=== PATIENT | female | born 1965 | race Caucasian/White ===

== ENCOUNTER 2022-02-16 07:02 | Observation (INO) | payer OTHER ==
[2022-02-10 14:23] LABS: BASOPHILS # (AUTO) 0.1 X10'3 (0-0.2); BASOPHILS % (AUTO) 0.9 % (0-1); EOSINOPHILS # (AUTO) 0.2 X10'3 (0-0.9); EOSINOPHILS % (AUTO) 2.8 % (0-6); LYMPHOCYTES # (AUTO) 2.1 X10'3 (1.1-4.8); LYMPHOCYTES % (AUTO) 26.3 % (21-51); MEAN CORPUSCULAR HEMOGLOBIN 28.2 PG (27.0-31.0); MEAN CORPUSCULAR HGB CONC 32.7 g/dL (33.0-36.5); MEAN PLATELET VOLUME 10.1 FL (7.4-10.4); MONOCYTES # (AUTO) 0.7 X10'3 (0-0.9); MONOCYTES % (AUTO) 8.4 % (2-12); NEUTROPHILS # (AUTO) 4.8 X10'3 (1.8-7.7); NEUTROPHILS % (AUTO) 61.6 % (42-75); PRE OP HEMATOCRIT 39.6 % (35.0-45.0); PRE OP HEMOGLOBIN 12.9 g/dL (12.0-16.0); PRE OP PLATELET COUNT 339 X10'3 (140-440); RED CELL DISTRIBUTION WIDTH 14.4 % (11.5-14.5)
[2022-02-10 14:37] LABS: ALBUMIN 3.1 G/DL (3.4-5.0); ALBUMIN/GLOBULIN RATIO 0.6 (1.1-1.5); ALKALINE PHOSPHATASE 133 IU/L (46-116); BLOOD UREA NITROGEN 14 MG/DL (7-18); BUN/CREATININE RATIO 16.3 (6.6-38.0); CALCIUM 9.2 MG/DL (8.5-10.1); CHLORIDE 102 MMOL/L (99-107); CREATININE 0.86 MG/DL (0.40-0.90); PRE OP ALT 28 U/L (30-65); PRE OP ANION GAP 5 (8-16); PRE OP AST 21 U/L (10-37); PRE OP BILIRUB, TOTAL 0.3 MG/DL (0.0-1.0); PRE OP GLUCOSE 93 MG/DL (70-104); PRE OP POTASSIUM 3.9 MMOL/L (3.4-5.1); PRE OP SODIUM 140 MMOL/L (135-145); TOTAL CARBON DIOXIDE 32.7 MMOL/L (24-32); TOTAL PROTEIN 7.9 G/DL (6.4-8.2); eGFR 68 ML/MIN
[~2022-02-16] VITALS: Ht 162.6 cm; Wt 137.3 kg
[2022-02-16] VITALS (45 sets, daily range): BP systolic 113–155; BP diastolic 46–97
[~2022-02-16 07:02] MED LIST: ALBU17AE26 INH; ALPR1TAB7 PO; ASCO100T12 PO; BUPIVACAINE liposomal/PF 13.3 MG/ML vial IM ONE; BUPIVAcaine/PF 2.5 mg/ml (0.25%) 30ml vial ONE; BUPR300T86 PO; CHOL500049 PO; DOCUMENT DATE & TIME OF BETA-BLOCKER PO ONE; EREN70AU2 SQ; ESCI20TA39 PO; GABA300T25 PO; HYDR12.55 PO; LIDOcaine 1% 30ml preserv. free vial ONE; LOSA100T57 PO; METO-395 PO; MULT1CAP66 PO; SEMA1PEN3 SQ; ceFAZolin inj. 3,000 MG in normal saline 100ml IV soln 100 ML IV ONE; famotidine 20mg tablet PO ONE
[2022-02-16] MEDS: ringers solution, lacted 1,000 ML IV SCH ×3 (08:12→21:24)
[2022-02-16] MEDS ORDERED: neostigmine methylsulfate 1 MG/ML 10ml vial ONE (10:40)
[2022-02-16] MEDS ORDERED: sevoflurane 250ml liquid IH ONE (10:40)
[2022-02-16] MEDS ORDERED: glycopyrrolate 0.2mg/ml inj ONE (10:40)
[2022-02-16] MEDS ORDERED: midazolam 1 mg/ML 2ml injection ONE (10:46)
[2022-02-16] MEDS ORDERED: fentaNYL /PF 50mcg/ml 5ml ampule ONE (10:48)
[2022-02-16] MEDS ORDERED: LIDOcaine 2% (20mg/ml) 5ml vial ONE (11:03)
[2022-02-16] MEDS ORDERED: propofol inj 20 ML IV ONE (11:03)
[2022-02-16] MEDS ORDERED: ondansetron/PF 4mg/2ml inj ONE (11:03)
[2022-02-16] MEDS ORDERED: dexamethasone sod phosphate 4mg/ml inj. ONE (11:03)
[2022-02-16] MEDS ORDERED: rocuronium 10mg/ml inj IV ONE (11:03)
[2022-02-16] MEDS ORDERED: ondansetron/PF 4mg/2ml inj IV PRN ×2 (11:30→15:40)
[2022-02-16] MEDS ORDERED: proCHLORperazine 10 MG/2 ml inj IV PRN (11:30)
[2022-02-16] MEDS ORDERED: hydrALAZINE 20mg/ml inj. IV PRN (11:30)
[2022-02-16] MEDS ORDERED: morphine 2 MG/ML inj. syringe IV PRN (11:30)
[2022-02-16] MEDS ORDERED: morphine 4 MG/ML inj SYRINge IV PRN (11:30)
[2022-02-16] MEDS ORDERED: labetalol 20mg/4ml (5mg/ml) syringe IV PRN (11:30)
[2022-02-16] MEDS ORDERED: ringers solution, lacted 1,000 ML IV SCH (11:30)
[2022-02-16] MEDS ORDERED: acetaminophen 1,000mg/100ml IV 100 ML IV PRN (11:30)
[2022-02-16] MEDS ORDERED: HYDROmorphone/PF 0.2 MG/ML SYRINGE IV PRN (11:30)
--- NOTE | 2022-02-16 12:38 | NUR ---
Received from OR via [facility], accompanied by Anesthesiologist Donis HADDAD and report given by Anesthesiolgist. PT ARRIVES AWAKE, APPEARS COMFORTABLE, VSS ON SIMPLE MASK 02. DRESSING TO ABD CLEAN DRY AND INTACT. Addendum: 02/16/22 at 1249 by Sukumar Ly RN Amended: Links added.
[2022-02-16] MEDS: HYDROmorphone/PF 0.2 MG/ML SYRINGE IV PRN ×5 (13:04→16:28)
[2022-02-16] MEDS ORDERED: PER5325T PO (13:06)
[2022-02-16] MEDS: oxyCODONE/APAP 5-325mg tablet PO PRN (13:34)
[2022-02-16] MEDS ORDERED: naloxone 0.4 mg/ml inj IV PRN (15:40)
[2022-02-16] MEDS: HYDROmorph/NS 0.2 mg/ml PCA 100 ML IV SCH ×4 (17:55→23:00)
--- NOTE | 2022-02-16 18:02 | NUR ---
BEAU UPDATED ON PLAN OF CARE, QUESTIONS ADDRESSED. AWAITING 18:30 CHANGE OF SHIFT TO DELIVER PT TO ROOM. Addendum: 02/16/22 at 1803 by Sukumar Ly RN Amended: Links added.
--- NOTE | 2022-02-16 19:33 | NUR ---
Patient in room [facility]. I have received report from JONATHAN WOOD from PACU and had the opportunity to ask questions and assume patient care.
[2022-02-16] MEDS: heparin, porcine 5000 units/ml vial SQ SCH (21:54)
[2022-02-17] MEDS: HYDROmorph/NS 0.2 mg/ml PCA 100 ML IV SCH ×4 (01:00→06:55)
[2022-02-17 02:00] VITALS: BP 115/63
[2022-02-17] MEDS: ringers solution, lacted 1,000 ML IV SCH ×2 (03:03→11:40)
[2022-02-17 06:00] VITALS: BP 114/61
--- NOTE | 2022-02-17 06:34 | NUR ---
Problems reprioritized. Patient report given, questions answered & plan of care reviewed with FRANKY WOOD.
[2022-02-17] MEDS ORDERED: diphenhydrAMINE 25mg capsule PO PRN (07:50)
[2022-02-17] MEDS ORDERED: potassium Cl 20 mEq SR tablet PO STA (08:31)
[2022-02-17] MEDS: heparin, porcine 5000 units/ml vial SQ SCH (08:37)
[2022-02-17] MEDS: oxyCODONE/APAP 5-325mg tablet PO PRN ×2 (08:45→13:20)
--- NOTE | 2022-02-17 08:59 | NUR ---
Wasted CADD with Olinda WOOD Charge 35ml's Dilaudid
[2022-02-17] MEDS ORDERED: CADD PCA waste documentation MC SCH (09:05)
[2022-02-17] MEDS ORDERED: metoprolol succinate 25mg (24-HOUR) SR. Tablet PO SCH (09:24)
[2022-02-17 10:00] VITALS: BP 121/67
[2022-02-17] MEDS ORDERED: albuterol 2.5 MG/3 ML nebule NEB PRN (10:00)
[2022-02-17] MEDS ORDERED: ALPRAZolam 0.5mg tablet PO PRN (11:05)
[2022-02-17] MEDS ORDERED: GABAPENTIN PO SCH (13:00)
[2022-02-17] MEDS ORDERED: GABA600T13 PO (13:14)
--- NOTE | 2022-02-17 13:25 | NUR ---
Patient discharge instructions reviewed with patient and family at bedside. All questions answered. Patients IV DC'd cannula intact. Patient states she has all her belongings. Patient was taken via wheelchair by TALA Ceja to patients family vehicle.
[2022-02-17] MEDS ORDERED: gabapentin 300mg capsule PO SCH (13:45)
[2022-02-18] MEDS ORDERED: losartan 50mg tablet PO SCH (08:00)
[2022-02-18] MEDS ORDERED: ascorbic acid 500mg tablet PO SCH (08:00)
[2022-02-18] MEDS ORDERED: ESCITALOPRAM OXALATE 5 MG TABLET PO SCH (08:00)
[2022-02-18] MEDS ORDERED: buPROPion SR 150mg tablet PO SCH (08:00)
[2022-02-18] MEDS ORDERED: cholecalciferol (vitamin D3) 1,000 unit (25mcg) tablet PO SCH (08:00)
[2022-02-18] MEDS ORDERED: HYDROchlorothiazide 12.5mg capsule PO SCH (08:00)
== END 2022-02-17 14:26 | disposition home or self-care (01) ==
LOC: PAS 07:02 → PAS IN 15:45 → SUR 3N 18:55
PROVIDERS: ADMIT Surgery; ATTEND Surgery
DX: K43.0 Incisional hernia with obstruction, without gangrene (principal); K66.0 Peritoneal adhesions (postprocedural) (postinfection); I10 Essential (primary) hypertension; E11.9 Type 2 diabetes mellitus without complications; E66.01 Morbid (severe) obesity due to excess calories; Z79.899 Other long term (current) drug therapy
CPT/HCPCS: 36415; 49657; 80053; 82948; 85025; 93005; 96365; 96366; 96372; 96375; 96376; C1713; C1781; C9290; G0378; J0131; J0690; J1100; J1170; J1644; J2250; J2270; J2405; J2704; J2710; J3010; J3490; J7120; Q0163; S2900; A4215; A4615; A4618

== ENCOUNTER 2023-12-12 14:31 | Outpatient (CLI) | payer OTHER ==
[~2023-12-12 14:31] MED LIST changes: -BUPIVACAINE liposomal/PF 13.3 MG/ML vial IM ONE; -BUPIVAcaine/PF 2.5 mg/ml (0.25%) 30ml vial ONE; +BUPR-564 PO; -BUPR300T86 PO; -DOCUMENT DATE & TIME OF BETA-BLOCKER PO ONE; -GABA300T25 PO; +GABA600T13 PO; -LIDOcaine 1% 30ml preserv. free vial ONE; -LOSA100T57 PO; +LOSA100T58 PO; +PER5325T PO; -ceFAZolin inj. 3,000 MG in normal saline 100ml IV soln 100 ML IV ONE; -famotidine 20mg tablet PO ONE
== END 2023-12-12 23:59 | disposition home or self-care (01) ==
LOC: RAD 14:31
PROVIDERS: ATTEND Family Medicine
DX: R13.10 Dysphagia, unspecified (principal)
CPT/HCPCS: 74230

== ENCOUNTER 2024-04-03 11:32 | Emergency (ER) | payer OTHER ==
[~2024-04-03] VITALS: Ht 162.6 cm; Wt 110.8 kg
[~2024-04-03 11:32] MED LIST changes: +GABA-1405 PO; -GABA600T13 PO
[2024-04-03 12:42] LABS: BASOPHILS % (AUTO) 0.2 % (0-1); EOSINOPHILS % (AUTO) 0 % (0-6); HEMATOCRIT 38.4 % (35.0-45.0); HEMOGLOBIN 12.7 g/dl (12.0-16.0); LYMPHOCYTES # (AUTO) 1.4 X10'3 (1.1-4.8); LYMPHOCYTES % (AUTO) 7.9 % (21-51); MEAN CORPUSCULAR HEMOGLOBIN 28.5 PG (27.0-31.0); MEAN CORPUSCULAR VOLUME 86.4 FL (78-98); MONOCYTES # (AUTO) 0.5 X10'3 (0-0.9); MONOCYTES % (AUTO) 2.5 % (2-12); NEUTROPHILS # (AUTO) 16.4 X10'3 (1.8-7.7); NEUTROPHILS % (AUTO) 89.4 % (42-75); PLATELET COUNT 282 X10'3 (140-440); RED BLOOD COUNT 4.45 X10'6 (4.20-5.60); RED CELL DISTRIBUTION WIDTH 13.8 % (11.5-14.5); WHITE BLOOD COUNT 18.3 X10'3 (4.5-11.0)
[2024-04-03 12:58] LABS: ALANINE AMINOTRANSFERASE 33 U/L (12-78); ALBUMIN 3.1 G/DL (3.4-5.0); ALBUMIN/GLOBULIN RATIO 0.7 (1.1-1.5); ALKALINE PHOSPHATASE 125 IU/L (46-116); ANION GAP 12 (8-16); ASPARTATE AMINO TRANSFERASE 26 U/L (10-37); BILIRUBIN,TOTAL 0.5 MG/DL (0.1-1.0); BLOOD UREA NITROGEN 11 MG/DL (7-18); CALCIUM 9.1 MG/DL (8.5-10.1); CHLORIDE 101 MMOL/L (99-107); CREATININE 0.92 MG/DL (0.40-0.90); GLUCOSE 121 MG/DL (70-104); POTASSIUM 3.1 MMOL/L (3.5-5.1); SODIUM 137 MMOL/L (135-145); TOTAL CARBON DIOXIDE 24.1 MMOL/L (24-32); TOTAL PROTEIN 7.7 G/DL (6.4-8.2); eCRCL 57 ML/MIN; eGFR 62 ML/MIN
[2024-04-03 15:05] VITALS: TEMP 97.8
[2024-04-03] MEDS: ondansetron/PF 4mg/2ml inj IV ONE (15:46)
[2024-04-03] MEDS: normal saline 1000ml 1,000 ML IV ONE (15:46)
[2024-04-03] MEDS: HYDROmorphone 1 mg/ml syringe IV ONE (15:46)
[2024-04-03] MEDS ORDERED: BUPR8TAB4 SL (16:32)
[2024-04-03] MEDS ORDERED: ONDA-243 PO (16:32)
[2024-04-03] MEDS: acetaminophen 1,000mg/100ml IV 100 ML IV ONE (16:39)
[2024-04-03 17:15] VITALS: BP 116/74; PULSE 76; RESP 16; O2SAT 96
== END 2024-04-03 17:18 | disposition home or self-care (01) ==
LOC: ER 11:33
DX: J10.1 Influenza due to other identified influenza virus with other respiratory manifestations (principal); F11.23 Opioid dependence with withdrawal; M25.562 Pain in left knee; Z88.1 Allergy status to other antibiotic agents; Z88.8 Allergy status to other drugs, medicaments and biological substances
CPT/HCPCS: 36415; 71045; 80053; 85025; 93005; 96361; 96365; 96375; 99285; J0131; J1171; J2405; J7030

== ENCOUNTER 2024-04-29 09:53 | Inpatient (IN) | payer OTHER ==
[2024-04-24 15:18] LABS: BASOPHILS # (AUTO) 0.1 X10'3 (0-0.2); BASOPHILS % (AUTO) 0.9 % (0-1); EOSINOPHILS # (AUTO) 0.2 X10'3 (0-0.9); EOSINOPHILS % (AUTO) 2.5 % (0-6); LYMPHOCYTES # (AUTO) 2.6 X10'3 (1.1-4.8); LYMPHOCYTES % (AUTO) 31.8 % (21-51); MEAN CORPUSCULAR HEMOGLOBIN 28.8 PG (27.0-31.0); MEAN CORPUSCULAR HGB CONC 32.5 g/dL (33.0-36.5); MEAN CORPUSCULAR VOLUME 88.6 FL (78-98); MEAN PLATELET VOLUME 10.4 FL (7.4-10.4); MONOCYTES # (AUTO) 0.6 X10'3 (0-0.9); MONOCYTES % (AUTO) 7.2 % (2-12); NEUTROPHILS # (AUTO) 4.7 X10'3 (1.8-7.7); NEUTROPHILS % (AUTO) 57.6 % (42-75); PRE OP HEMATOCRIT 37.1 % (35.0-45.0); PRE OP HEMOGLOBIN 12.1 g/dL (12.0-16.0); PRE OP PLATELET COUNT 330 X10'3 (140-440); PRE OP WHITE BLOOD COUNT 8.1 10'3 (4.8-10.8); RED BLOOD COUNT 4.18 X10'6 (4.20-5.60); RED CELL DISTRIBUTION WIDTH 14.6 % (11.5-14.5)
[2024-04-24 15:41] LABS: ALBUMIN 3.1 G/DL (3.4-5.0); ALBUMIN/GLOBULIN RATIO 0.7 (1.1-1.5); ALKALINE PHOSPHATASE 113 IU/L (46-116); BLOOD UREA NITROGEN 21 MG/DL (7-18); BUN/CREATININE RATIO 23.3 (10.0-20.0); CHLORIDE 104 MMOL/L (99-107); PRE OP ALT 26 U/L (30-65); PRE OP ANION GAP 7 (8-16); PRE OP AST 24 U/L (10-37); PRE OP BILIRUB, TOTAL 0.3 MG/DL (0.0-1.0); PRE OP GLUCOSE 128 MG/DL (70-104); PRE OP POTASSIUM 3.8 MMOL/L (3.4-5.1); PRE OP SODIUM 141 MMOL/L (135-145); TOTAL CARBON DIOXIDE 29.7 MMOL/L (24-32); TOTAL PROTEIN 7.3 G/DL (6.4-8.2); eGFR 64 ML/MIN
[2024-04-29] VITALS (30 sets, daily range): BP systolic 140–179; BP diastolic 60–98; PULSE 72–95; RESP 12–21; TEMP 97.6–99; O2SAT 94–100
[~2024-04-29] VITALS: Ht 162.6 cm; Wt 113.4 kg
[2024-04-29] MEDS: ceFAZolin 2gm in dextrose, iso 50 ML IV ONE (05:30)
[~2024-04-29 09:53] MED LIST changes: +ACET-3414; +ACET-890 PO; -ALBU17AE26 INH; -ASCO100T12 PO; -CHOL500049 PO; -EREN70AU2 SQ; +GALC120P SQ; +IBUP-49 PO; -LOSA100T58 PO; +LOSA50TA64 PO; -METO-395 PO; -MULT1CAP66 PO; +OMEP40CA21 PO; -PER5325T PO; -SEMA1PEN3 SQ; +SEMA1PEN5 SQ
[2024-04-29] MEDS: famotidine 20mg tablet PO ONE (10:54)
[2024-04-29] MEDS: ringers solution, lacted 1,000 ML IV SCH (10:55)
[2024-04-29] MEDS: tranexamic acid 650mg tablet PO ONE (10:55)
[2024-04-29] MEDS ORDERED: tetracaine 1% (10mg/ml) pres. free inj. ONE (13:49)
[2024-04-29] MEDS ORDERED: BUPIVACAINE/MELOXICAM 14 ML VIAL IL ONE (13:49)
[2024-04-29] MEDS ORDERED: VANCOMYCIN 1,500MG inj. 1,500 MG in normal saline 500ml IV soln 300 ML IV ONE (14:00)
[2024-04-29] MEDS: VANCOMYCIN/WATER FOR INJ (PEG) 1.5GM/300 ML IVPB IV ONE (14:12)
[2024-04-29] MEDS ORDERED: meperidine/PF 25mg/ml syringe IV PRN (15:15)
[2024-04-29] MEDS ORDERED: ringers solution, lacted 1,000 ML IV SCH (15:15)
[2024-04-29] MEDS ORDERED: proCHLORperazine 10 MG/2 ml inj IV PRN (15:15)
[2024-04-29] MEDS ORDERED: morphine 4 MG/ML inj SYRINge IV PRN (15:15)
[2024-04-29] MEDS ORDERED: morphine 2 MG/ML inj. syringe IV PRN (15:15)
[2024-04-29] MEDS ORDERED: ondansetron/PF 4mg/2ml inj IV PRN ×2 (15:15→18:00)
[2024-04-29] MEDS ORDERED: HYDROmorphone/PF 0.2 MG/ML SYRINGE IV PRN ×2 (15:15)
[2024-04-29] MEDS ORDERED: BUPIVAcaine/dex-water/PF 7.5 mg/ml 2ml ampul ONE (15:28)
[2024-04-29] MEDS ORDERED: fentaNYL /PF 50mcg/ml 5ml ampule ONE (15:33)
[2024-04-29] MEDS: BUPIVACAINE/MELOXICAM 14 ML VIAL IL ONE (16:45)
[2024-04-29] MEDS ORDERED: ROPIVAcaine 0.5% (5mg/ml) 30ml vial ONE (17:44)
[2024-04-29] MEDS ORDERED: MIDAZolam 1 MG/ML 5ML VIAL ONE (17:44)
[2024-04-29] MEDS ORDERED: ePHEDrine 50MG/ML INJ. ONE (17:45)
[2024-04-29] MEDS ORDERED: 0.9 % SODIUM CHLORIDE 10 ML VIAL ONE ×2 (17:45)
[2024-04-29] MEDS ORDERED: propofol inj 20 ML IV ONE ×5 (17:45)
[2024-04-29] MEDS ORDERED: dexamethasone sod phosphate 4mg/ml inj. ONE (17:45)
[2024-04-29] MEDS ORDERED: SEMAGLUTIDE 1 MG SQ SCH (18:00)
[2024-04-29] MEDS ORDERED: acetaminophen 325mg tablet PO PRN (18:00)
[2024-04-29] MEDS ORDERED: diphenhydrAMINE 25mg capsule PO PRN ×2 (18:00)
[2024-04-29] MEDS ORDERED: naloxone 0.4 mg/ml inj IV PRN (18:00)
[2024-04-29] MEDS ORDERED: magnesium hydroxide 30ml (MOM) UD suspension PO PRN (18:00)
[2024-04-29] MEDS ORDERED: HYDROmorphone inj. 0.5 MG/0.5 ML DISP.SYRIN IV PRN (18:00)
[2024-04-29] MEDS ORDERED: bisacodyl 10mg suppository rectal RC PRN (18:00)
[2024-04-29] MEDS: hydrALAZINE 20mg/ml inj. IV PRN (18:27)
[2024-04-29] MEDS: acetaminophen 1,000mg/100ml IV 100 ML IV ONE (19:21)
[2024-04-29] MEDS: labetalol 20mg/4ml (5mg/ml) syringe IV PRN (19:23)
[2024-04-29] MEDS ORDERED: VANCOMYCIN 1GM 200ML H20 (PEG) 200 ML IV SCH (20:00)
[2024-04-29] MEDS ORDERED: vancomycin/NS 1 GM ADD-VANTAGE 250 ML IV SCH (20:00)
[2024-04-29] MEDS: sennosides 8.6mg tablet PO SCH (20:41)
[2024-04-29] MEDS: acetaminophen 325mg tablet PO SCH (20:42)
[2024-04-29] MEDS: oxyCODONE IR 5mg (immed. release) tablet PO PRN (21:12)
[2024-04-29] MEDS: potassium cl 20mEq in 1/2 NS 1,000 ML IV SCH (21:12)
[2024-04-29] MEDS: gabapentin 300mg capsule PO SCH (23:39)
[2024-04-29] MEDS: ceFAZolin/D5W- 1GM premix 50 ML IV SCH (23:39)
[2024-04-30 02:00] VITALS: BP 157/78; PULSE 88; RESP 14; TEMP 98.7; O2SAT 96
[2024-04-30] MEDS: VANCOMYCIN 1GM 200ML H20 (PEG) 200 ML IV SCH (03:53)
[2024-04-30 06:00] VITALS: BP 128/69; PULSE 96; RESP 13; TEMP 97.5; O2SAT 97
[2024-04-30 06:17] LABS: ANION GAP 10 (8-16); CHLORIDE 105 MMOL/L (99-107); POTASSIUM 3.7 MMOL/L (3.5-5.1); SODIUM 138 MMOL/L (135-145); TOTAL CARBON DIOXIDE 22.9 MMOL/L (24-32)
[2024-04-30 06:29] LABS: BASOPHILS # (AUTO) 0.1 X10'3 (0-0.2); BASOPHILS % (AUTO) 0.5 % (0-1); EOSINOPHILS % (AUTO) 0.1 % (0-6); HEMATOCRIT 33.8 % (35.0-45.0); LYMPHOCYTES % (AUTO) 8.1 % (21-51); MEAN CORPUSCULAR HEMOGLOBIN 29.2 PG (27.0-31.0); MEAN CORPUSCULAR HGB CONC 32.5 g/dL (33.0-36.5); MEAN CORPUSCULAR VOLUME 89.8 FL (78-98); MEAN PLATELET VOLUME 10.4 FL (7.4-10.4); MONOCYTES # (AUTO) 0.5 X10'3 (0-0.9); MONOCYTES % (AUTO) 3.9 % (2-12); NEUTROPHILS # (AUTO) 10.4 X10'3 (1.8-7.7); NEUTROPHILS % (AUTO) 87.4 % (42-75); PLATELET COUNT 244 X10'3 (140-440); RED BLOOD COUNT 3.76 X10'6 (4.20-5.60); RED CELL DISTRIBUTION WIDTH 15.2 % (11.5-14.5); WHITE BLOOD COUNT 11.9 X10'3 (4.5-11.0)
[2024-04-30 07:45] VITALS: RESP 13; O2SAT 97
[2024-04-30] MEDS: losartan 50mg tablet PO SCH (08:52)
[2024-04-30] MEDS: aspirin 325mg tablet PO SCH (08:52)
[2024-04-30] MEDS: BUPROPION HCL 150MG XL 24 HR 150 MG TAB PO SCH (08:52)
[2024-04-30] MEDS: pantoprazole 40mg Tablet.DR PO SCH (08:53)
[2024-04-30] MEDS: HYDROchlorothiazide 12.5mg capsule PO SCH (08:54)
[2024-04-30] MEDS: ESCITALOPRAM 10 mg tablet 10 MG TABLET PO SCH (08:55)
[2024-04-30] MEDS: ALPRAZolam 0.5mg tablet PO PRN (09:06)
[2024-04-30 10:00] VITALS: BP 130/73; PULSE 96; RESP 14; TEMP 98; O2SAT 94
[2024-04-30] MEDS: HYDROmorphone 1 mg/ml syringe IV PRN (17:43)
[2024-04-30 18:30] VITALS: BP 125/63; PULSE 95; RESP 16; TEMP 98; O2SAT 96
[2024-04-30] MEDS: acetaminophen 325mg tablet PO ONE (20:57)
[2024-04-30] MEDS: celeCOXIB 100mg capsule PO SCH (21:04)
[2024-04-30] MEDS: gabapentin 300mg capsule PO ONE (21:05)
[2024-04-30 22:00] VITALS: BP 109/61; PULSE 86; RESP 16; O2SAT 95
[2024-05-01 06:00] VITALS: BP 120/58; PULSE 75; RESP 16; TEMP 97.8; O2SAT 97
[2024-05-01 07:14] LABS: BASOPHILS % (AUTO) 0.3 % (0-1); EOSINOPHILS # (AUTO) 0.5 X10'3 (0-0.9); EOSINOPHILS % (AUTO) 5.4 % (0-6); HEMATOCRIT 31.4 % (35.0-45.0); HEMOGLOBIN 10.3 g/dl (12.0-16.0); LYMPHOCYTES # (AUTO) 1.4 X10'3 (1.1-4.8); LYMPHOCYTES % (AUTO) 15.4 % (21-51); MEAN CORPUSCULAR HEMOGLOBIN 29.4 PG (27.0-31.0); MEAN CORPUSCULAR HGB CONC 32.9 g/dL (33.0-36.5); MEAN CORPUSCULAR VOLUME 89.2 FL (78-98); MEAN PLATELET VOLUME 10.5 FL (7.4-10.4); MONOCYTES # (AUTO) 0.8 X10'3 (0-0.9); MONOCYTES % (AUTO) 8.4 % (2-12); NEUTROPHILS # (AUTO) 6.4 X10'3 (1.8-7.7); NEUTROPHILS % (AUTO) 70.5 % (42-75); PLATELET COUNT 246 X10'3 (140-440); RED BLOOD COUNT 3.52 X10'6 (4.20-5.60); RED CELL DISTRIBUTION WIDTH 15.1 % (11.5-14.5); WHITE BLOOD COUNT 9.1 X10'3 (4.5-11.0)
[2024-05-01 07:30] VITALS: RESP 16; O2SAT 97
[2024-05-01 10:00] VITALS: BP 100/50; PULSE 79; RESP 14; TEMP 97.8; O2SAT 98
[2024-05-01] MEDS: oxyCODONE IR 5mg (immed. release) tablet PO PRN (14:43)
[2024-05-01] MEDS ORDERED: acetaminophen 325mg tablet PO PRN (18:20)
[2024-05-01 18:30] VITALS: BP 124/64; PULSE 89; RESP 15; TEMP 98.2; O2SAT 96
[2024-05-01 22:00] VITALS: BP 115/57; PULSE 83; RESP 16; TEMP 97.5; O2SAT 98
[2024-05-02 06:00] VITALS: BP 131/68; PULSE 82; RESP 18; TEMP 98.2; O2SAT 96
[2024-05-02 06:22] LABS: BASOPHILS % (AUTO) 0.2 % (0-1); EOSINOPHILS # (AUTO) 0.5 X10'3 (0-0.9); EOSINOPHILS % (AUTO) 5.7 % (0-6); HEMOGLOBIN 10.4 g/dl (12.0-16.0); LYMPHOCYTES # (AUTO) 1.2 X10'3 (1.1-4.8); LYMPHOCYTES % (AUTO) 14.4 % (21-51); MEAN CORPUSCULAR HEMOGLOBIN 29.7 PG (27.0-31.0); MEAN CORPUSCULAR HGB CONC 33.6 g/dL (33.0-36.5); MEAN CORPUSCULAR VOLUME 88.3 FL (78-98); MEAN PLATELET VOLUME 10.4 FL (7.4-10.4); MONOCYTES # (AUTO) 0.6 X10'3 (0-0.9); MONOCYTES % (AUTO) 7.4 % (2-12); NEUTROPHILS # (AUTO) 6.1 X10'3 (1.8-7.7); NEUTROPHILS % (AUTO) 72.3 % (42-75); PLATELET COUNT 265 X10'3 (140-440); RED BLOOD COUNT 3.51 X10'6 (4.20-5.60); RED CELL DISTRIBUTION WIDTH 14.9 % (11.5-14.5); WHITE BLOOD COUNT 8.4 X10'3 (4.5-11.0)
[2024-05-02 06:55] VITALS: RESP 18; O2SAT 96
[2024-05-02 10:00] VITALS: BP 149/86; PULSE 83; RESP 20; TEMP 98; O2SAT 98
[2024-05-27] MEDS ORDERED: GALCANEZUMAB GNLM 120 MG SQ SCH (08:00)
== END 2024-05-02 13:30 | disposition home health service (06) | DRG 470 ==
LOC: PAS IN 09:53 → ORTHO 4S 19:54
PROVIDERS: ADMIT Orthopaedic Surgery; ATTEND Orthopaedic Surgery
PROC: 8E0YXBZ Computer Assisted Procedure of Lower Extremity (ICD-10-PCS; 2024-04-29)
PROC: 8E0Y0CZ Robotic Assisted Procedure of Lower Extremity, Open Approach (ICD-10-PCS; 2024-04-29)
PROC: 0SRC0J9 Replacement of Right Knee Joint with Synthetic Substitute, Cemented, Open Approach (ICD-10-PCS; principal; 2024-04-29 15:28)
DX: M17.11 Unilateral primary osteoarthritis, right knee (principal); Z88.8 Allergy status to other drugs, medicaments and biological substances
CPT/HCPCS: Z7506; Z7508; 36415; 80051; 80053; 82948; 85025; 87081; 97110; 97116; 97161; 97530; A4215; A6449; A7000; C1713; C1776; G0378; J0131; J0360; J0690; J0735; J1100; J1171; J2250; J2704; J2795; J3010; J3372; J3480; J3490; J7120

== ENCOUNTER → 2024-11-19 | Outpatient (CLI) | payer OTHER ==
[~2024-11-19] MED LIST changes: +BUPR-480 PO; -BUPR-564 PO; +HYDR-3973 PO; +IRON PO; +VITAMIN B SHOT
[2024-11-19 14:08] LABS: MEAN PLATELET VOLUME 10.5 FL (7.4-10.4); PRE OP HEMATOCRIT 40.3 % (35.0-45.0); PRE OP HEMOGLOBIN 13.2 g/dL (12.0-16.0); PRE OP PLATELET COUNT 280 X10'3 (140-440); PRE OP WHITE BLOOD COUNT 6.3 10'3 (4.8-10.8); RED CELL DISTRIBUTION WIDTH 14.6 % (11.5-14.5)
[2024-11-19 14:47] LABS: CREATININE 0.79 MG/DL (0.40-0.90); PRE OP ALT 21 U/L (30-65); PRE OP ANION GAP 8 (8-16); PRE OP AST 18 U/L (10-37); PRE OP BILIRUB, TOTAL 0.5 MG/DL (0.0-1.0); PRE OP GLUCOSE 93 MG/DL (70-104); PRE OP POTASSIUM 3.6 MMOL/L (3.4-5.1); PRE OP SODIUM 140 MMOL/L (135-145); TOTAL CARBON DIOXIDE 29.6 MMOL/L (24-32); eGFR 74 ML/MIN
== END | disposition home or self-care (01) ==
LOC: LAB 12:40 → EDSTATUS 11-28 10:00
PROVIDERS: ATTEND Orthopaedic Surgery
DX: Z01.818 Encounter for other preprocedural examination (principal); M17.12 Unilateral primary osteoarthritis, left knee
CPT/HCPCS: 36415; 80053; 85025